=== PATIENT | female | born 1975 | race Caucasian/White ===

== ENCOUNTER 2022-07-09 07:40 | Day surgery (SDC) | payer BC, SELFPAY ==
[2022-07-09] VITALS (10 sets, daily range): BP systolic 86–113; BP diastolic 24–79; PULSE 55–80; RESP 11–24; TEMP 36.2–37; O2SAT 96–100; BMI 29.5
[2022-07-09] MEDS: Lactated Ringers 1,000 ML 30 ML IV (08:30)
--- NOTE | 2022-07-09 09:02 | ANES.PREOP_ITS ---
General Info Date of Service Date Performed: 07/09/22 Height: 5 ft 4 in Weight: 78.018 kg Body Mass Index (BMI): 29.5 Surgical Procedure: Operation Date: 07/09/22 09:40 Proposed Procedure Side Surgeon p Shoulder Rotator Cuff Arthroscopic w/Extensive Debridement, Biceps Tenodesis,Subacromial Decompression Right Gary Musnon MD Meds Allergies and Home Medications Allergies Allergy/AdvReac Type Severity Reaction Status Date / Time No Known Allergies Allergy Verified 07/08/22 11:26 Home Medication Medication Instructions Recorded Unknown [No Known Home Meds] 07/06/22 Current Visit Medications: Current Medications Generic Name Dose Route Start Last Admin Trade Name Freq PRN Reason Stop Dose Admin Ringer's Solution 1,000 mls @ 30 mls/hr 07/09/22 06:00 07/09/22 08:30 IV 08/07/22 23:59 30 mls/hr INFUSION JANEY Administration Cefazolin Sodium/Dextrose 2 gm in 50 mls @ 100 mls/hr 07/09/22 06:00 Ancef Duplex IVPB 07/09/22 16:00 PREOP JANEY IV Miscellaneous Supplies 1 each 07/09/22 06:00 Iv Access IV 08/07/22 23:59 DIRECTED JANEY Oxycodone HCl 0 mg 07/09/22 07:14 Oxycodone 5 Mg Tab PO Q3H PRN PRN Pain Sodium Chloride 0 ml 07/09/22 06:00 Normal Saline Flush 10 Ml Syr IV 08/07/22 23:59 PRN PRN Sodium Chloride 0 ml 07/09/22 06:00 Normal Saline 10 Ml Vial IJ 08/07/22 23:59 DIRECTED PRN Sterile Water 0 ml 07/09/22 06:00 Water,Injection,Sterile 10 Ml Vial IJ 08/07/22 23:59 DIRECTED PRN PFSH Active Problems Active Problems: Problem Status Onset Code Rotator cuff tear, right M75.101 Tendonitis of long head of biceps brachii of right shoulder M75.21 Bursitis of right shoulder M75.51 Surgical History Surgical History History of tubal ligation Tobacco Smoking/Tobacco Use Status: Current every day Tobacco Type: cigarettes Smoking cigarettes per day: 5 Years smoked: 25 Alcohol Alcohol Intake: current Alcohol intake frequency: holidays/special occasions onl y Substance Use Substance use: Never Substance use type: does not use Vital Signs and Lab Results Vital Signs Most Recent Vital Signs in EMR: Most Recent Vital Signs Temp Pulse Resp BP Pulse Ox 37.0 C 80 18 113/53 L 98 07/09/22 07:52 07/09/22 07:52 07/09/22 07:52 07/09/22 07:52 07/09/22 07:52 Lab Results Blood Type / Crossmatch: No Data to Display Complete Blood Count: No Data to Display Complete Metabolic Panel: No Data to Display Liver Function Panel: No Data to Display Coagulation Panel: No Data to Display Cardiac Panel: No Data to Display Arterial Blood Gas: No Data to Display Venous Blood Gas: No Data to Display Pancreas Panel: No Data to Display Thyroid Panel: No Data to Display Infectious Disease: No Data to Display Blood Cultures: No Data to Display Toxicology Panel: No Data to Display Panel: No Data to Display Anesthesia Assessment and Plan Anesthesia History Personal History: No History of Anesthesia Complications and Other Family History: No Family History of Anesthesia Complications Exercise Tolerance Exercise Tolerance: Metabolic Equivalents>4 Pertinent Negatives Pertinent Negatives: No Symptoms of GERD, No Major Cardiovascular Symptoms or Complaints and No Major Pulmonary Symptoms or Complaints Cardiac & Pulmonary Exam Cardiac Exam: Normal S1/S2 Heart Sounds Pulmonary Exam: Clear Bilateral Breath Sounds Implantable Cardiac Device Does patient have a Pacemaker or an ICD?: No Airway Exam Known Difficult Airway: No Mallampati Class: 1 Mouth Opening: Normal (> 3cm) Thyromental Distance: Greater than 3 cm Neck Range of Motion: Full ROM Neck Circumference: Normal Teeth Condition: Normal Dentition ASA Classification ASA Score: ASA 1 Emergency Case?: No NPO Status NPO Status: NPO Clears >2 hours, Solids >8 hours Status Status: Negative HCG Anesthesia Plan Resuscitation Status: Full Code Anesthesia Technique: General Anesthesia Airway Planned: Endotracheal Tube Pain Management: Surgeon and patient request nerve block Monitors Used: Standard Monitors
[2022-07-09] MEDS: ceFAZolin 2 GM/50 ML BAG IVPB (10:15)
[2022-07-09] MEDS: EPINEPHrine 30 MG/30 ML VIAL (11:00)
--- NOTE | 2022-07-09 11:01 | W.ANESNERVE ---
Nerve Block Single Injection Procedure Date and Time Date Performed: 07/09/22 Procedure Start: 09:55 Location Where Procedure Performed Procedure Location: Day Surgery Unit Reason Performed: Postoperative Analgesia Requesting Provider: Gary Munson Timeout Performed Timeout Performed: Yes Monitoring Used ECG, Blood Pressure, SpO2 and See EMR for corresponding vital signs Sterility Sterility: Hand Hygiene, Surgical Cap, Surgical Mask, Sterile Gloves and Chlorhexidine Sedation Given During Procedure Sedation Given (Indicate Dose Given): Versed IV Dose:: 2mg Patient Mental Status Patient Mental Status: Sedate with meaningful communication Nerve Block 1st Nerve Block: Laterality: Right Block Type: Interscalene Needle / Catheter Used: 100mm SonoPlex II Local Anesthetic Bolus (Indicate Dose Given): Lidocaine used for local infiltration of skin, Injected in 3-5ml increments after negative blood aspiration, Bupivacaine 0.5% Dose:: 10ml and Exparel Dose:: 10ml Additives (Indicate Dose Given): None Ultrasound: Sterile probe cover and gel used Ultrasound Image Saved?: Yes Nerve Stimulator: Not Used Paresthesia: Right Paresthesia Duration: Transient Procedure Tolerated: No Complications and Patient tolerated well Procedure Outcome: Successful Performed By: Deshawn Waldron
--- NOTE | 2022-07-09 12:11 | W.PM.DSUDISC ---
Discharge Plan Disposition Patient Disposition: HOME Condition: Stable Discharge Details Reason For Visit: Right shoulder surgery Attending Provider: Gary Munson Primary Care Provider: SYLVIA WILSON Home Meds and New Rx's Prescriptions: New naproxen 250 mg tablet 250 - 500 mg PO BID PRNQty: 40 0RF Rx Instructions: take with a meal aspirin 81 mg tablet,delayed release (DR/EC) 81 mg PO DAILY 14 Days Qty: 14 0RF oxycodone 5 mg tablet 5 - 10 mg PO Q4H MDD 30 mg PRN (Reason: moderate to severe pain) Qty: 18 0RF Discharge Instructions Additional Instructions: Surgery: Right shoulder arthroscopy with biceps tenodesis, extensive debridement, and subacromial decompression. Activity: You should gradually increase range of motion motion and use of your shoulder. You may use your shoulder for all regular activities while protecting biceps repair. Avoid any weighted elbow flexion or resisted supination for 6-8 weeks. No heavy lifting, reaching overhead, or lifting away from body for approximately 2-3 months. You may use the sling whenever you are out of the house for a few weeks. At home it is best to remove the sling and rest the arm on a pillow at your side or support the operative side with your other hand. A physical therapy prescription will be provided in the office at follow up. Prescriptions: Aspirin 81 mg take 1 daily to prevent a blood clot for 2 weeks Naproxen 250 mg take 1-2 every 12 hours with a meal as needed for moderate pain Oxycodone 5 mg take 1-2 every 4-6 hours as needed for severe pain You may use [id number] Tylenol (acetaminophen) as needed for mild pain. These pain medications may be taken all at once or in different combinations as needed. Also, recommend Colace (docusate) as a stool softener as surgery and pain medicine cause constipation. You may try [id number] diphenhydramine (Benadryl) 25-50 mg nightly as a sleep aid Dressings: Remove shoulder bandage after 3 days. Leave the sticky Steri-Strips in place until they fall off or remove them after you shower. Cover the incisions with Band-Aids or leave them open to air. You may shower after 5 days. Follow-up: 10-[address] Munson You may take off the leg compression stockings this evening at home. You may also leave them on a few days longer if you have a history of leg swelling or edema. Let us know right away if you develop any redness, drainage, fevers, chest pain, or trouble breathing. Do not drink alcohol or drive for at least 24 hours after anesthesia. Please call the office during business hours with any questions or concerns. Discharge Orders Discharge Orders: Discharge Order (Routine); Ordered 07/09/22 Ordered By: Gary Munson DS: Diagnosis Discharge Diagnosis (1) Rotator cuff tear, right: Status: Acute
--- NOTE | 2022-07-09 12:26 | ROE_ITS ---
Operative Note Operative Note DATE OF PROCEDURE: 07/09/22 PRE-OP DIAGNOSIS: Right: 1. Rotator cuff tear 2. LHB tendinopathy 3. Bursitis POST-OP DIAGNOSIS: same PROCEDURE: Right: 1. Arthroscopic biceps tenodesis, CPT# 68693. This involved arthroscopically suturing and reattaching the long head of the biceps tendon to the proximal humerus at the superior margin of the bicipital groove with a screw at the correct tension. 2. Extensive debridement, CPT# 80930. This involved using arthroscopic hand instruments, power instruments, and radiofrequency instruments to release the long head of the biceps tendon and debride areas of partial articular rotator cuff tearing, labral tearing, synovitis, and chondromalacia within the glenohumeral joint anteriorly, superiorly and posteriorly. 3. Subacromial decompression with partial acromioplasty, CPT# 93298. This involved using arthroscopic power instruments and a radiofrequency wand to complete a bursectomy and remove bone spurs on the undersurface of the acromion. The senior office assistant was medically required in order to help assist in techniques above, which require positioning the arm, holding the arthroscope, and manipulating multiple instruments and sutures at the same time. This cannot be done without the help of an experienced senior office assistant. SURGEON: Gary Munson COUNTERINTELLIGENCE ANALYST: Lori Xie ANESTHESIA TYPE: General LMA/ETT and Primary Nerve Block Refer to Anesthesia Record ESTIMATED BLOOD LOSS: 5 PATHOLOGY: none sent COMPLICATIONS: None Patient was transported to: PACU Patient's condition: stable Implants: Arthrex: 4.75mm SwiveLocks x 1 Indications: The patient was diagnosed with the above conditions and appropriately indicated for surgical intervention. Please see complete medical record for details. Findings: Exam under anesthesia: Full range of motion, no instability Glenohumeral joint: Significant anterior superior synovitis. Intact subscapularis. Intact cartilage. Large partial articular supraspinatus and infraspinatus rotator cuff tear from anterior to posterior with only about 10- 25% medial to lateral footprint and tendon thickness involvement. Subacromial space: Moderate bursitis. No significant acromial bone spur. Moderate rotator cuff diffuse fraying. Mild thinning anterior laterally without any significant structural tearing. Procedure Description: In the operating room, general anesthesia was induced. Bilateral shoulders were examined. The patient was positioned in the beachchair position. All bony prominences were well-padded. Preoperative antibiotics were administered. The shoulder was prepped and draped in the usual sterile fashion. The correct patient, procedure, and side of the procedure were all verified prior to incision. Starting through the posterior portal a standard complete diagnostic arthroscopy was performed of the glenohumeral joint including inspection of the long head of the biceps, anterior and superior labrum, subscapularis tendon, supraspinatus and infraspinatus tendons, and axillary recess. The glenoid and humeral head cartilage as well as the posterior labrum were inspected from an anterior viewing portal. Significant findings and interventions noted above. Of particular note, the partial articular rotator cuff tear was debrided of unstable tissue, frayed tissue, and underside free flaps and the radiofrequency ablator was used to smooth in contour tissue to a smooth margin. An all-arthroscopic suprapectoral biceps tenodesis was performed through an anterior portal using a Loop N Tack method with a SutureTape FiberLink cinched around and through the tendon. The biceps was tenotomized from the labrum and fixated with a suture anchor at the superior margin of the bicipital groove. Starting through the posterior portal, the arthroscope was directed into the subacromial space. A lateral 50 yard line lateral portal was created. A combination of power instruments and a radiofrequency ablator were used to debride bursitis anteriorly, posteriorly, and laterally as well as expose and smooth bone spurring on the undersurface of the acromion. The coracoacromial ligament was minimally released. The bursectomy was completed viewing laterally and working from posteriorly and the rotator cuff was thoroughly inspected with findings noted above. A spinal needle was delivered through the area of mild rotator cuff bursal thinning into the glenohumeral joint. Arthroscopy switched back into the joint and this area did correspond with some of the moderate grade partial articular tearing. On probing both articular and bursal sides there was no communication nor significant footprint involvement. Decision was made to omit any takedown and repair of majority intact rotator cuff tissue. The shoulder was drained of arthroscopic fluid. All portal sites were copiously irrigated. These incisions were closed using 3-0 Monocryl in a buried fashion and then covered with Mastisol, Steri-Strips, Xeroform, dry gauze, and ABDs. The dressings were covered and secured with Medipore tape. The operative extremity was placed into a sling for immobilization. The patient awoke from anesthesia without complication and was transferred to the recovery room in a stable condition.
[2022-07-09] MEDS: fentaNYL 100 MCG/2 ML VIAL IVP (12:34)
--- NOTE | 2022-07-09 13:18 | W.ANESPOSTOP ---
Postoperative Evaluation Date, Time and Location Date Performed: 07/09/22 Time Performed: 13:18 Patient Location: Day Surgery Unit Vital Signs Most Recent Imported Vital Signs: Most Recent Vital Signs Temp Pulse Resp BP Pulse Ox 36.2 C L 64 18 105/52 L 100 07/09/22 12:50 07/09/22 12:50 07/09/22 12:50 07/09/22 12:50 07/09/22 12:50 Pain Score Most Recent Pain Score: Most Recent Pain Score Pain Level 4 07/09/22 12:50 Assessment Mental Status: Awake (Alert & Oriented to Patient Baseline) Airway and Respiratory Function: Patent airway with normal (patient baseline) respiratory exam Cardiovascular Function: Hemodynamically Stable Hydration Status: Adequately Hydrated Nausea & Vomiting: No Nausea or Vomiting Pain: Pain is tolerable per patient Peripheral Nerve Block: Regional nerve block not resolved at time of post operative discharge
== END 2022-07-09 13:53 | disposition home or self-care (01) ==
PROVIDERS: PCP Naturopath; Visit Provider Student in an Organized Health Care Education/Training Program
PROC: (CPT 29827; principal; 2022-07-09 09:30)
DX: M75.101 Unspecified rotator cuff tear or rupture of right shoulder, not specified as traumatic (principal); M75.21 Bicipital tendinitis, right shoulder; M75.51 Bursitis of right shoulder
CPT/HCPCS: 29828; 29826; 29823; 76942; J0690; J1100; J2250; J2370; J2405; J2704; J3010

== ENCOUNTER 2022-12-02 01:56 | Outpatient (CLI) | payer BC, SELFPAY ==
--- NOTE | 2022-12-02 08:42 | DI.MRI_ITS ---
Exam(s) MR UPPER JOINT RT WO EXAM: MR UPPER JOINT RT WO CLINICAL HISTORY: Persistent pain, stiffness,rt rotator cuff tear, tendonitis biceps,m75.101,. TECHNIQUE: Multiplanar multisequence MRI was performed. COMPARISON: MR MR UPPER EXT ANY JOINT RT WO CONTRAST from 05/21/2022 FINDINGS: BONES: There is no fracture or contusion pattern. Postsurgical changes are seen in the humeral head. JOINTS: The acromioclavicular joint is normal. The glenohumeral joint is normal. TENDONS: Supraspinatus: There is tendinosis of the supraspinatus tendon. No evidence of a tear. Infraspinatus: Unremarkable. Subscapularis: Unremarkable. Teres Minor: Unremarkable. Biceps: Normal appearance and location in the bicipital groove. MUSCLES: Unremarkable. GLENOID LABRUM: Unremarkable on this noncontrast examination. SOFT TISSUES: Unremarkable. LIGAMENTS: Unremarkable. OTHER: There is a small amount of fluid seen in the subacromial bursa. IMPRESSION: 1. Postsurgical changes in the humeral head. 2. No evidence of a rotator cuff tear or labral tear on this noncontrast examination. 3. Small amount of fluid in the subacromial bursa which may represent a bursitis. DATA REPOSITORY:
== END 2022-12-02 02:16 ==
LOC: DI 01:56
PROVIDERS: PCP Naturopath; Visit Provider Student in an Organized Health Care Education/Training Program
DX: M25.511 Pain in right shoulder (principal); M75.21 Bicipital tendinitis, right shoulder; M75.101 Unspecified rotator cuff tear or rupture of right shoulder, not specified as traumatic; M75.81 Other shoulder lesions, right shoulder; M25.411 Effusion, right shoulder; Z98.890 Other specified postprocedural states
CPT/HCPCS: 73221

== ENCOUNTER 2022-12-07 16:38 | Outpatient (CLI) | payer BC, SELFPAY ==
[2022-12-07 12:12] LABS: ESR 13 mm/hr (0-20)
[2022-12-07 12:13] LABS: Abs Immature Grans 0.03 10^3/uL (0.0-0.06); Absolute Basophil Count 0.03 10^3/uL (0.0-0.2); Absolute Eosinophil Count 0.11 10^3/uL (0.0-0.7); Absolute Lymphocyte Count 2.77 10^3/uL (1.2-3.4); Absolute Monocyte Count 0.53 10^3/uL (0.1-0.8); Absolute Neutrophil Count 5.61 10^3/uL (1.2-6.7); Basophils % 0.3; Eosinophils % 1.2; HCT 41.1 % (36.0-46.0); HGB 13.4 g/dL (11.2-15.7); Immature Grans % 0.3; Lymphocytes % 30.5; MCH 29.5 pg (27.0-33.0); MCHC 32.6 % (32.0-36.0); MCV 90 fL (80-95); MPV 9.7 fL (8.0-11.0); Monocytes % 5.8; Neutrophils % 61.9; Platelet Count 290 10^3/uL (130-400); RBC 4.55 10^6/uL (3.93-5.22); RDW 13.1 % (11.7-14.6); RDW-SD 42.8 fL; WBC 9.08 10^3/uL (4.4-10.8)
[2022-12-07 13:33] LABS: C-Reactive Protein 0.14 mg/dL (0.0-0.3)
== END 2022-12-07 16:39 | disposition home or self-care (01) ==
LOC: LBO 16:38
PROVIDERS: PCP Naturopath; Visit Provider Student in an Organized Health Care Education/Training Program
DX: M25.511 Pain in right shoulder (principal); M75.101 Unspecified rotator cuff tear or rupture of right shoulder, not specified as traumatic; M75.01 Adhesive capsulitis of right shoulder; Z01.818 Encounter for other preprocedural examination; Z01.812 Encounter for preprocedural laboratory examination
CPT/HCPCS: 36415; 85652; 85025; 86140

== ENCOUNTER 2022-12-23 08:00 | Day surgery (SDC) | payer BC, SELFPAY ==
--- NOTE | 2022-12-23 07:23 | PDOC.DSDIS_ITS ---
Date of service: 12/23/22 Time of Service: 12:30 Discharge Plan Disposition Patient Disposition: Home Discharge Details Attending Provider: Gary Munson Primary Care Provider: SYLVIA WILSON Home Meds and New Rx's Prescriptions: New oxycodone 5 mg tablet 5 - 10 mg PO Q4H MDD 30 mg PRN (Reason: moderate to severe pain) Qty: 12 0RF ibuprofen 800 mg tablet 800 mg PO BID PRN (Reason: pain, moderate) Qty: 40 0RF Discontinued ibuprofen [Advil] 200 mg tablet 200 mg PO TID PRN Discharge Instructions Additional Instructions: Surgery: Right shoulder manipulation under anesthesia Activity: Encourage increasing range of motion. Perform daily stretching exerci ses. Resume physical therapy tomorrow. For PT- ROM was full post-procedure: 135 FE, 75 ER at the side, 75+ IR at 90 AB. Prescriptions: Ibuprofen 800 mg take 1 every 12 hours with a meal as needed for moderate pain Oxycodone 5 mg take 1-2 every 4-6 hours as needed for severe pain You may use [id number] Tylenol (acetaminophen) as needed for mild pain. These pain medications may be taken all at once or in different combinations as needed. Also, recommend Colace (docusate) as a stool softener as surgery and pain medicine cause constipation. You may try [id number]-[id number] diphenhydramine (Benadryl) 25-50 mg nightly as a sleep aid Dressings: None Follow-up: 10-[address] Munson You may take off the leg compression stockings this evening at home. You may also leave them on a few days longer if you have a history of leg swelling or edema. Let us know right away if you develop any redness, drainage, fevers, chest pain, or trouble breathing. Do not drink alcohol or drive for at least 24 hours after anesthesia. Please call the office during business hours with any questions or concerns. Discharge Orders Discharge Orders: Discharge Order (Routine); Ordered 12/23/22 Ordered By: Gary Munson DS: Diagnosis Discharge Diagnosis (1) Adhesive capsulitis of right shoulder: Status: Acute
--- NOTE | 2022-12-23 07:25 | ROE_ITS ---
Date of service: 12/23/22 Time of Service: 10:45 Operative Note Operative Note DATE OF PROCEDURE: 12/23/22 PRE-OP DIAGNOSIS: Right shoulder adhesive capsulitis POST-OP DIAGNOSIS: same PROCEDURE: Right shoulder manipulation under anesthesia, CPT# 96115 SURGEON: Gary Munson CHAINSTITCH ZIPPER SETTER: None None ANESTHESIA TYPE: General:No Airway and Primary Nerve Block Refer to Anesthesia Record ESTIMATED BLOOD LOSS: 0 COMPLICATIONS: None Patient was transported to: same day Patient's condition: stable Indications: Please see complete medical record for details. Procedure Description: In the operating room, general anesthesia was induced. The patient was positioned supine on the stretcher. Bony prominences were padded. Preoperative antibiotics were omitted. The correct patient, procedure, and site of procedure were all verified prior to beginning. The Right shoulder was examined under anesthesia. Range of motion was significantly limited with stiff endpoints: About 30 degrees external rotation at the side, 95 degrees forward elevation, abduction 85 degrees, internal rotation maybe 45 degrees.. There were no significant mechanical symptoms or instability. Using a short lever arm and careful steady pressure and alternating forward elevation, external rotation at the side, external and in ternal rotation at 90 degrees abduction, range of motion was restored and confirmed to be symmetrical to the contralateral side. Releases were readily achieved without undue stress. All terminal range of motion endpoints were reinforced numerous times including internal rotation behind the back and cross body adduction. Post manipulation, there were no significant mechanical symptoms or instability. The patient awoke from anesthesia without complication and was transferred to the recovery room in a stable condition.
[2022-12-23 08:50] VITALS: BP 118/70; PULSE 81; RESP 16; TEMP 36.2; O2SAT 98
--- NOTE | 2022-12-23 09:01 | W.ANESPRE ---
General Info Date of Service Date Performed: 12/23/22 Height: 5 ft 4 in Weight: 75.8 kg Body Mass Index (BMI): 28.6 Surgical Procedure: Operation Date: 12/23/22 10:10 Proposed Procedure Side Surgeon p Shoulder Manipulation Under Anesthesia Right Gary Munson MD Meds Allergies and Home Medications Allergies Allergy/AdvReac Type Severity Reaction Status Date / Time No Known Allergies Allergy Verified 12/23/22 08:50 Home Medication Medication Instructions Recorded naproxen 250 mg tablet 250 - 500 mg PO BID PRN #30 tabs 12/23/22 oxycodone 5 mg tablet 5 - 10 mg PO Q4H PRN moderate to 12/23/22 severe pain #12 tabs Current Visit Medications: Current Medications Generic Name Dose Route Start Last Admin Trade Name Freq PRN Reason Stop Dose Admin Ringer's Solution 1,000 mls @ 30 mls/hr 12/23/22 06:00 IV 01/21/23 23:59 INFUSION JANEY IV Miscellaneous Supplies 1 each 12/23/22 06:00 Iv Access IV 01/21/23 23:59 DIRECTED JANEY Oxycodone HCl 0 mg 12/23/22 07:23 Oxycodone 5 Mg Tab PO Q3H PRN PRN Pain Sodium Chloride 0 ml 12/23/22 06:00 Normal Saline Flush 10 Ml Syr IV 01/21/23 23:59 PRN PRN Sodium Chloride 0 ml 12/23/22 06:00 Normal Saline 10 Ml Vial IJ 01/21/23 23:59 DIRECTED PRN Sterile Water 0 ml 12/23/22 06:00 Water,Injection,Sterile 10 Ml Vial IJ 01/21/23 23:59 DIRECTED PRN PFSH Active Problems Active Problems: Problem Status Onset Code Rotator cuff tear, right M75.101 Tendonitis of long head of biceps brachii of right shoulder M75.21 Adhesive capsulitis of right shoulder M75.01 Medical History Medical History Bursitis of right shoulder Surgical History Surgical History (Updated 12/23/22 @ 08:49 by Zulma Hodge) History of arthroscopy of right shoulder 07/09/22 History of tubal ligation Tobacco Smoking/Tobacco Use Status: Current every day Tobacco Type: cigarettes Smoking cigarettes per day: 5 Years smoked: 25 Alcohol Alcohol Intake: current Alcohol intake frequency: holidays/special occasions only Substance Use Substance use: Never Substance use type: does not use Vital Signs and Lab Results Vital Signs Most Recent Vital Signs in EMR: Most Recent Vital Signs Temp Pulse Resp BP Pulse Ox 36.2 C L 81 16 118/70 98 12/23/22 08:50 12/23/22 08:50 12/23/22 08:50 12/23/22 08:50 12/23/22 08:50 Lab Results Blood Type / Crossmatch: No Data to Display Complete Blood Count: White Blood Count 9.08 10^3/uL (4.4-10.8) 12/07/22 11:55 Red Blood Count 4.55 10^6/uL (3.93-5.22) 12/07/22 11:55 Hemoglobin 13.4 g/dL (11.2-15.7) 12/07/22 11:55 Hematocrit 41.1 % (36.0-46.0) 12/07/22 11:55 Platelet Count 290 10^3/uL (130-400) 12/07/22 11:55 Complete Metabolic Panel: C-Reactive Protein 0.14 mg/dL (0.0-0.3) 12/07/22 11:55 Liver Function Panel: No Data to Display Coagulation Panel: No Data to Display Cardiac Panel: No Data to Display Arterial Blood Gas: No Data to Display Venous Blood Gas: No Data to Display Pancreas Panel: No Data to Display Thyroid Panel: No Data to Display Infectious Disease: No Data to Display Blood Cultures: No Data to Display Toxicology Panel: No Data to Display Panel: No Data to Display Anesthesia Assessment and Plan Anesthesia History Personal History: No History of Anesthesia Complications Family History: No Family History of Anesthesia Complications Exercise Tolerance Exercise Tolerance: Metabolic Equivalents>4 Pertinent Negatives Pertinent Negatives: No Symptoms of GERD, No Major Cardiovascular Symptoms or Complaints and No Major Pulmonary Symptoms or Complaints Cardiac & Pulmonary Exam Cardiac Exam: Normal S1/S2 Heart Sounds Pulmonary Exam: Clear Bilateral Breath Sounds Implantable Cardiac Device Does patient have a Pacemaker or an ICD?: No Airway Exam Known Difficult Airway: No Mallampati Class: 1 Mouth Opening: Normal (> 3cm) Thyromental Distance: Greater than 3 cm Neck Range of Motion: Full ROM Neck Circumference: Normal Teeth Condition: Normal Dentition ASA Classification ASA Score: ASA 2 Emergency Case?: No NPO Status NPO Status: NPO Clears >2 hours, Solids >8 hours Status Status: Negative HCG Anesthesia Plan Resuscitation Status: Full Code Anesthesia Technique: General Anesthesia Airway Planned: Natural Airway Pain Management: Surgeon and patient request nerve block Monitors Used: Standard Monitors
[2022-12-23 09:03] VITALS: BMI 28.6
[2022-12-23] MEDS: Lactated Ringers 1,000 ML 30 ML IV (09:25)
[2022-12-23 10:08] VITALS: BP 111/72; PULSE 81; RESP 17; TEMP 36.2; O2SAT 96
[2022-12-23 10:37] VITALS: BP 115/64; PULSE 69; RESP 18; O2SAT 97
[2022-12-23 11:07] VITALS: BP 100/72; PULSE 81; RESP 18; TEMP 36; O2SAT 95
--- NOTE | 2022-12-23 11:18 | W.ANESNERVE ---
Nerve Block Single Injection Procedure Date and Time Date Performed: 12/23/22 Procedure Start: 10:08 Location Where Procedure Performed Procedure Location: Day Surgery Unit Reason Performed: Postoperative Analgesia Requesting Provider: Gary Munson Timeout Performed Timeout Performed: Yes Monitoring Used ECG, Blood Pressure, SpO2 and See EMR for corresponding vital signs Sterility Sterility: Hand Hygiene, Surgical Cap, Surgical Mask, Sterile Gloves and Chlorhexidine Sedation Given During Procedure Sedation Given (Indicate Dose Given): Versed IV Dose:: 2mg Patient Mental Status Patient Mental Status: Sedate with meaningful communication Nerve Block 1st Nerve Block: Laterality: Right Block Type: Interscalene Ultrasound Image Saved?: Yes Needle / Catheter Used: 80mm SonoPlex II Local Anesthetic Bolus (Indicate Dose Given): None, Injected in 3-5ml increments after negative blood aspiration, Blood noted on aspiration (Needle withdrawn, flushed, and repositioned) and Bupivacaine 0.5% Dose:: 20mL Additives (Indicate Dose Given): None Ultrasound: Sterile probe cover and gel used Nerve Stimulator: Supplement to Ultrasound use (Battery partially through procedure) Paresthesia: None Post Procedure Pain score (0-10): 0 Procedure Tolerated: No Complications and Patient tolerated well Procedure Outcome: Successful Performed By: Heike Rosales
--- NOTE | 2022-12-23 11:23 | W.ANESPOSTOP ---
Postoperative Evaluation Date, Time and Location Date Performed: 12/23/22 Time Performed: : Patient Location: Day Surgery Unit Vital Signs Most Recent Imported Vital Signs: Most Recent Vital Signs Temp Pulse Resp BP Pulse Ox 36 C L 81 18 100/72 95 12/23/22 11:07 12/23/22 11:07 12/23/22 11:07 12/23/22 11:07 12/23/22 11:07 Pain Score Most Recent Pain Score: Most Recent Pain Score Pain Level 4 12/23/22 11:07 Assessment Mental Status: Awake (Alert & Oriented to Patient Baseline) Airway and Respiratory Function: Patent airway with normal (patient baseline) respiratory exam Cardiovascular Function: Hemodynamically Stable Hydration Status: Adequately Hydrated Nausea & Vomiting: No Nausea or Vomiting Pain: Pain is tolerable per patient (Reports some discomfort in armpit region, explained that the region is covered by thoracic nerves and not part of the plexus blocked. Patient pleased with level of pain relief.) Peripheral Nerve Block: Regional nerve block not resolved at time of post operative discharge
[2022-12-23 11:33] VITALS: BP 108/65; PULSE 74; RESP 16; TEMP 36; O2SAT 94
[2022-12-23] MEDS: oxyCODONE 5 MG TAB PO (11:38)
[2022-12-23 12:05] VITALS: RESP 16; O2SAT 96
== END 2022-12-23 12:20 | disposition home or self-care (01) ==
PROVIDERS: PCP Naturopath; Visit Provider Student in an Organized Health Care Education/Training Program
PROC: (CPT 23700; principal; 2022-12-23 10:00)
DX: M75.01 Adhesive capsulitis of right shoulder (principal)
CPT/HCPCS: 23700; 76942; 81025; J1100; J2250; J2405; J2704